=== PATIENT | female | born 1950 | race Caucasian/White ===

== ENCOUNTER 2019-05-29 21:39 | Emergency (ER) | payer OTHER, MEDICAID ==
[~2019-05-29] VITALS: Ht 154.9 cm; Wt 72.6 kg
[2019-05-29 21:45] VITALS: BP_SYST 150
--- NOTE | 2019-05-29 21:45 | NUR ---
Patient triaged and placed in waiting room. VSS and patient appears in no acute distress at this time. Accompanied by FAM MEMBER, awaiting available bed, and MD notified of need for MSE.
--- NOTE | 2019-05-29 23:09 | NUR ---
Patient to ER bed 7 to gown for evaluation. Side rails up. Report given to PENELOPE ARAGON.
--- NOTE | 2019-05-29 23:19 | NUR ---
Note undone in EDM - 05/29/19 at 2332 by STEF Pt BIB EMS with c/o right lower back pain. Pt A&Ox4. Pt states he took break at work around 9 pm and lower right back began to hurt. Pt states pain got progressively worse and called 911. Pt states pain is 10/10. Pt presents with unlabored breathing and clear bilateral lung sounds. Pt denies any urinary problems, nausea, vomiting, and fever. Pt states he has not eaten all day due to lack of appetite. Will continue to monitor.
--- NOTE | 2019-05-29 23:24 | NUR ---
Pt presents to ER with c/o headache, nose bleeding, and cough. Pt A&Ox4. Pt states head pain began around 7pm and described pain as "head was going to split open." Pt states pain 10/10. Pt states left side of nose started to bleed this morning and was intermittent all day. Pt states when she blew nose, "a lot of blood clots came out." Pt states nose bleed stopped at 10pm. Pt states dry cough presented 3 days ago. Pt lung sounds clear bilateral with no use of accessory muscles. Pt denies fever, nausea and vomiting. Will continue to monitor.
--- NOTE | 2019-05-29 23:29 | NUR ---
ER Dr. Vela at bedside examining patient.
--- NOTE | 2019-05-29 23:40 | NUR ---
ER Dr. Vela at bedside explaining results to patient.
[2019-05-29] MEDS ORDERED: OSELTAMIVIR PHOSPHATE 75 MG CAPSULE PO ONE (23:45)
[2019-05-29] MEDS ORDERED: ACETAMINOPHEN 500 MG TABLET PO ONE (23:45)
--- NOTE | 2019-05-29 23:58 | NUR ---
radiology at bedside.
[2019-05-30 00:05] LABS: BASOPHILS # (AUTO) 0.1 K/uL (0.0-0.2); BASOPHILS % (AUTO) 1.1 % (0.0-2.0); EOSINOPHILS # (AUTO) 0.1 K/uL (0.0-0.4); EOSINOPHILS % (AUTO) 1.1 % (0.0-4.0); HEMATOCRIT 35.7 % (36-48); HEMOGLOBIN 11.7 g/dL (12.0-16.0); LYMPHOCYTES # (AUTO) 1.4 K/uL (1.0-5.5); LYMPHOCYTES % (AUTO) 21.8 % (20.5-51.5); MEAN CORPUSCULAR HEMOGLOBIN 28 pg (27-31); MEAN CORPUSCULAR HGB CONC 33 % (32-36); MEAN CORPUSCULAR VOLUME 84 fL (79.0-98.0); MONOCYTES # (AUTO) 0.4 K/uL (0.0-1.0); MONOCYTES % (AUTO) 5.7 % (1.7-9.3); NEUTROPHILS # (AUTO) 4.6 K/uL (1.8-7.7); NEUTROPHILS % (AUTO) 70.3 % (40.0-70.0); PLATELET COUNT (AUTO) 193 K/uL (130-430); RED BLOOD CELL COUNT(AUTO) 4.25 MIL/uL (4.2-6.2); WHITE BLOOD COUNT (AUTO) 6.5 K/uL (4.8-10.8)
[2019-05-30 00:30] LABS: BILIRUBIN,URINE NEGATIVE (NEGATIVE); BLOOD, URINE NEGATIVE (NEGATIVE); CLARITY/URINE SL CLOUDY (CLEAR); COLOR,URINE YELLOW (YELLOW); GLUCOSE,URINE NEGATIVE (NEGATIVE); KETONES,URINE NEGATIVE (NEGATIVE); LEUKOCYTE ESTERASE ,URINE NEGATIVE (NEGATIVE); NITRITE, URINE NEGATIVE (NEGATIVE); PROTEIN URINE TRACE (NEGATIVE); UROBILINOGEN,URINE 0.2 (0.2-1.0)
[2019-05-30 00:34] LABS: BACTERIA,URINE MANY /HPF (None Seen); RBC,URINE 0-3 /HPF (0-3); WBC,URINE 0-3 /HPF (0-3)
[2019-05-30 00:40] VITALS: BP_SYST 146
--- NOTE | 2019-05-30 00:40 | NUR ---
Patient given written and verbal discharge instructions and verbalizes understanding. ER MD Vela discussed with patient the results and treatment provided. Patient in stable condition. ID arm band removed. Rx of tamiflu given. Patient educated on pain management and to follow up with PMD. Pain Scale 1/10. Opportunity for questions provided and answered. Medication side effect fact sheet provided.
== END 2019-05-30 00:40 | disposition home or self-care (01) ==
LOC: SED 21:39
DX: J10.1 Influenza due to other identified influenza virus with other respiratory manifestations (principal); E11.40 Type 2 diabetes mellitus with diabetic neuropathy, unspecified; I10 Essential (primary) hypertension; Z88.0 Allergy status to penicillin; Z88.6 Allergy status to analgesic agent; Z88.8 Allergy status to other drugs, medicaments and biological substances; Z90.49 Acquired absence of other specified parts of digestive tract
CPT/HCPCS: 36415; 71045; 81000; 85025; 86710; 87086; 99284; G9035

== ENCOUNTER 2019-06-28 00:50 | Emergency (ER) | payer OTHER, MEDICAID ==
[~2019-06-28] VITALS: Ht 154.9 cm; Wt 69.9 kg
[2019-06-28 01:12] VITALS: BP_SYST 147
[2019-06-28 01:40] LABS: BASOPHILS # (AUTO) 0.1 K/uL (0.0-0.2); BASOPHILS % (AUTO) 1.8 % (0.0-2.0); EOSINOPHILS # (AUTO) 0.2 K/uL (0.0-0.4); EOSINOPHILS % (AUTO) 2.8 % (0.0-4.0); HEMATOCRIT 34.5 % (36-48); HEMOGLOBIN 11.3 g/dL (12.0-16.0); LYMPHOCYTES # (AUTO) 3.3 K/uL (1.0-5.5); MEAN CORPUSCULAR HEMOGLOBIN 28 pg (27-31); MEAN CORPUSCULAR HGB CONC 33 % (32-36); MEAN CORPUSCULAR VOLUME 85 fL (79.0-98.0); MONOCYTES # (AUTO) 0.4 K/uL (0.0-1.0); NEUTROPHILS # (AUTO) 3.6 K/uL (1.8-7.7); NEUTROPHILS % (AUTO) 47.4 % (40.0-70.0); PLATELET COUNT (AUTO) 197 K/uL (130-430); RED BLOOD CELL COUNT(AUTO) 4.05 MIL/uL (4.2-6.2); RED CELL DISTRIBUTION WIDTH 14.7 % (9.0-15.0); WHITE BLOOD COUNT (AUTO) 7.6 K/uL (4.8-10.8)
[2019-06-28 01:55] LABS: CALCIUM 9.2 mg/dL (8.4-11.0); CREATININE 0.64 mg/dL (0.55-1.30); POTASSIUM 4.7 mmol/L (3.5-5.1)
[2019-06-28 02:00] LABS: ALBUMIN 3.7 g/dL (3.4-4.8); TOTAL BILIRUBIN 0.3 mg/dL (0.0-1.0)
[2019-06-28 04:57] LABS: BILIRUBIN,URINE NEGATIVE (NEGATIVE); BLOOD, URINE NEGATIVE (NEGATIVE); CLARITY/URINE CLEAR (CLEAR); COLOR,URINE YELLOW (YELLOW); GLUCOSE,URINE NEGATIVE (NEGATIVE); KETONES,URINE NEGATIVE (NEGATIVE); LEUKOCYTE ESTERASE ,URINE 2+ (NEGATIVE); NITRITE, URINE POSITIVE (NEGATIVE); PROTEIN URINE NEGATIVE (NEGATIVE); UROBILINOGEN,URINE 0.2 (0.2-1.0)
[2019-06-28 05:04] LABS: RBC,URINE 0-3 /HPF (0-3); WBC,URINE 20-50 /HPF (0-3)
[2019-06-28 05:05] LABS: BACTERIA,URINE MANY /HPF (None Seen)
[2019-06-28] MEDS ORDERED: SULFAMETHOXAZOLE/TRIMETHOPR DS 1 TABLET PO ONE (06:00)
[2019-06-28] MEDS ORDERED: PHENAZOPYRIDINE HCL 100 MG TABLET PO ONE (06:00)
[2019-06-28] MEDS ORDERED: ACETAMINOPHEN 500 MG TABLET PO ONE (06:15)
[2019-06-28 06:23] VITALS: BP_SYST 147
== END 2019-06-28 06:24 | disposition home or self-care (01) ==
LOC: SED 00:50
DX: N39.0 Urinary tract infection, site not specified (principal); E11.40 Type 2 diabetes mellitus with diabetic neuropathy, unspecified; I10 Essential (primary) hypertension; Z88.0 Allergy status to penicillin; Z88.6 Allergy status to analgesic agent; Z88.5 Allergy status to narcotic agent; Z88.8 Allergy status to other drugs, medicaments and biological substances
CPT/HCPCS: 36415; 80053; 81000-TC; 83690-TC; 85025; 87086; 87186-TC; 99284

== ENCOUNTER 2021-02-27 01:25 | Observation (INO) | payer OTHER, MEDICAID, SELFPAY ==
[~2021-02-27] VITALS: Ht 154.9 cm; Wt 68.5 kg
[2021-02-27 02:25] VITALS: BP_SYST 172
[2021-02-27] MEDS ORDERED: MORPHINE 2 MG/ML INJ. SYRINGE IVP ONE (06:00)
[2021-02-27] MEDS ORDERED: MORPHINE 2 MG/ML INJ. SYRINGE ONE (06:05)
[2021-02-27] MEDS ORDERED: NACL 0.9% 1,000 ML IV ONE (06:45)
[2021-02-27] MEDS ORDERED: hydrALAZINE HCL 20 MG/ML VIAL IVP ONE (07:15)
[2021-02-27 07:23] LABS: BASOPHILS # (AUTO) 0.1 K/uL (0.0-0.2); BASOPHILS % (AUTO) 0.6 % (0.0-2.0); EOSINOPHILS # (AUTO) 0.3 K/uL (0.0-0.4); EOSINOPHILS % (AUTO) 2.8 % (0.0-4.0); HEMOGLOBIN 12.3 g/dL (12.0-16.0); LYMPHOCYTES # (AUTO) 2.3 K/uL (1.0-5.5); MEAN CORPUSCULAR HEMOGLOBIN 28 pg (27-31); MEAN CORPUSCULAR HGB CONC 34 % (32-36); MEAN CORPUSCULAR VOLUME 83 fL (79.0-98.0); MONOCYTES # (AUTO) 0.4 K/uL (0.0-1.0); MONOCYTES % (AUTO) 4.3 % (1.7-9.3); NEUTROPHILS # (AUTO) 6.5 K/uL (1.8-7.7); NEUTROPHILS % (AUTO) 68.3 % (40.0-70.0); PLATELET COUNT (AUTO) 212 K/uL (130-430); RED BLOOD CELL COUNT(AUTO) 4.36 MIL/uL (4.2-6.2); RED CELL DISTRIBUTION WIDTH 13.3 % (9.0-15.0); WHITE BLOOD COUNT (AUTO) 9.6 K/uL (4.8-10.8)
[2021-02-27 07:23] LABS: BARBITURATE, URINE NEGATIVE (NEG <=200)
[2021-02-27 07:24] LABS: BENZODIAZEPINE, URINE POSITIVE (NEG <=150); CANNABINOID, URINE NEGATIVE (NEG <=50); COCAINE, URINE NEGATIVE (NEG <=150); METHAMPHETAMINES SCREEN,URINE NEGATIVE (NEG <=500); OPIATE, URINE POSITIVE (NEG <=100); PHENCYCLIDINE SCREEN,URINE NEGATIVE (NEG <=25); UR TRICYCLIC ANTIDEPRESSANTS NEGATIVE (NEG <=300); URINE AMPHETAMINE NEGATIVE (NEG <=500); URINE METHADONE NEGATIVE (NEG <=200); URINE OXYCODONE SCREEN NEGATIVE (NEG <=100); URINE PROPOXYPHENE SCREEN NEGATIVE (NEG <=300)
[2021-02-27 07:24] LABS: INR 1.1 (0.8-1.2)
[2021-02-27 07:28] LABS: ANION GAP 12 (5-15); CALCIUM 9.7 mg/dL (8.4-11.0); CHLORIDE 97 mmol/L (98-107); GLUCOSE 324 mg/dL (70-99); SODIUM SERUM 134 mmol/L (136-145); UREA NITROGEN, BLOOD 19 mg/dL (8-21)
[2021-02-27 07:42] LABS: ALANINE AMINOTRANSFERASE 45 U/L (12-78); ALBUMIN 4.4 g/dL (3.4-4.8); ASPARTATE AMINOTRANSFERASE 26 U/L (10-37); TOTAL BILIRUBIN 0.4 mg/dL (0.0-1.0)
[2021-02-27 07:45] LABS: ACETAMINOPHEN < 1 ug/mL (1-30)
[2021-02-27 07:46] LABS: ALCOHOL, BLOOD < 3 mg/dL (<10)
[2021-02-27] MEDS ORDERED: GLIP5TAB26 PO (08:18)
[2021-02-27] MEDS ORDERED: PRO10 PO (08:18)
[2021-02-27] MEDS ORDERED: LISI10TA29 PO (08:18)
[2021-02-27] MEDS ORDERED: CYCL10TA24 PO (08:18)
[2021-02-27] MEDS ORDERED: HYDR25TA4 PO (08:18)
[2021-02-27 08:48] LABS: CLARITY/URINE CLOUDY (CLEAR); COLOR,URINE YELLOW (YELLOW); PH,URINE 6.5 (5.0-8.0)
[2021-02-27 08:49] LABS: GLUCOSE,URINE 2+ (NEGATIVE); KETONES,URINE NEGATIVE (NEGATIVE); PROTEIN URINE TRACE (NEGATIVE)
[2021-02-27 08:50] LABS: BILIRUBIN,URINE NEGATIVE (NEGATIVE); BLOOD, URINE TRACE (NEGATIVE); LEUKOCYTE ESTERASE ,URINE 3+ (NEGATIVE); NITRITE, URINE NEGATIVE (NEGATIVE); UROBILINOGEN,URINE 0.2 (0.2-1.0)
[2021-02-27 08:52] LABS: URINE SULFO SALICYLIC ACID NEGATIVE (NEGATIVE)
[2021-02-27 08:53] LABS: BACTERIA,URINE MODERATE /HPF (None Seen); WBC,URINE >100 /HPF (0-3)
[2021-02-27 10:07] VITALS: BP_SYST 129
[2021-02-27] MEDS ORDERED: ONDANSETRON HCL 4 MG/2 ML VIAL IVP PRN (13:15)
[2021-02-27] MEDS ORDERED: MORPHINE SULFATE 15 MG TABLET.ER ONE (13:27)
[2021-02-27] MEDS: MORPHINE SULFATE 15 MG TABLET.ER PO SCH ×2 (14:00→20:59)
[2021-02-27] MEDS: LEVOFLOXACIN IN DEXTROSE 5 % 100 ML IV SCH (14:35)
[2021-02-27] MEDS: NORMAL SALINE 5 ML DISP.SYRIN IVF SCH ×4 (14:36→21:10)
[2021-02-27 16:00] VITALS: BP_SYST 135
[2021-02-27] MEDS: INSULIN REGULAR, HUMAN 100 UNITS/ML, 10 ML VIAL (humuLIN R) SUBCUT PRN ×2 (18:20→21:08)
[2021-02-27 20:00] VITALS: BP_SYST 143
[2021-02-27] MEDS: CYCLOBENZAPRINE HCL 10 MG TABLET (FLEXERIL) PO SCH (20:58)
[2021-02-27] MEDS ORDERED: MORPHINE SULFATE 30 MG TABLET.SA PO SCH ×2 (21:00)
[2021-02-28 01:30] VITALS: BP_SYST 167
[2021-02-28] MEDS: NORMAL SALINE 5 ML DISP.SYRIN IVF SCH (06:21)
[2021-02-28] MEDS: INSULIN REGULAR, HUMAN 100 UNITS/ML, 10 ML VIAL (humuLIN R) SUBCUT PRN ×2 (06:25→12:46)
[2021-02-28] MEDS: MORPHINE SULFATE 15 MG TABLET.ER PO SCH ×2 (06:27→14:43)
[2021-02-28] MEDS: CYCLOBENZAPRINE HCL 10 MG TABLET (FLEXERIL) PO SCH (07:45)
[2021-02-28 08:00] VITALS: BP_SYST 133
[2021-02-28 08:27] LABS: BASOPHILS % (AUTO) 0.5 % (0.0-2.0); EOSINOPHILS # (AUTO) 0.2 K/uL (0.0-0.4); EOSINOPHILS % (AUTO) 2.3 % (0.0-4.0); HEMATOCRIT 37.6 % (36-48); HEMOGLOBIN 12.2 g/dL (12.0-16.0); LYMPHOCYTES # (AUTO) 2.4 K/uL (1.0-5.5); LYMPHOCYTES % (AUTO) 27.5 % (20.5-51.5); MEAN CORPUSCULAR HEMOGLOBIN 27 pg (27-31); MEAN CORPUSCULAR HGB CONC 33 % (32-36); MEAN CORPUSCULAR VOLUME 84 fL (79.0-98.0); MONOCYTES # (AUTO) 0.3 K/uL (0.0-1.0); NEUTROPHILS # (AUTO) 5.8 K/uL (1.8-7.7); NEUTROPHILS % (AUTO) 65.7 % (40.0-70.0); PLATELET COUNT (AUTO) 222 K/uL (130-430); RED BLOOD CELL COUNT(AUTO) 4.46 MIL/uL (4.2-6.2); RED CELL DISTRIBUTION WIDTH 13.8 % (9.0-15.0); WHITE BLOOD COUNT (AUTO) 8.9 K/uL (4.8-10.8)
[2021-02-28] MEDS ORDERED: HYDROCHLOROTHIAZIDE 25 MG TABLET (HCTZ) PO SCH (09:00)
[2021-02-28] MEDS ORDERED: FLUoxetine HCL 10 MG CAPSULE (PROzac) PO SCH (09:00)
[2021-02-28] MEDS ORDERED: LISINOPRIL 10 MG TABLET (PRINIVIL) PO SCH (09:00)
[2021-02-28] MEDS ORDERED: glipiZIDE XL 5 MG TAB ( GLUCOTROL XL) PO SCH (09:00)
[2021-02-28 09:19] LABS: ANION GAP 13 (5-15); CALCIUM 9.5 mg/dL (8.4-11.0); CHLORIDE 100 mmol/L (98-107); CREATININE 0.71 mg/dL (0.55-1.30); GLUCOSE 341 mg/dL (70-99); POTASSIUM 4.2 mmol/L (3.5-5.1); SODIUM SERUM 135 mmol/L (136-145); UREA NITROGEN, BLOOD 23 mg/dL (8-21)
[2021-02-28] MEDS ORDERED: LEVO500T89 PO (11:40)
[2021-02-28] MEDS: LEVOFLOXACIN IN DEXTROSE 5 % 100 ML IV SCH (12:43)
[2021-02-28 13:36] VITALS: BP_SYST 131
== END 2021-02-28 15:15 | disposition home or self-care (01) ==
LOC: SED 01:25 → SMU 07:56
PROVIDERS: ADMIT Preventive Medicine Preventive Medicine/Occupational Environmental Medicine; ATTEND Internal Medicine Hospice and Palliative Medicine
DX: F11.23 Opioid dependence with withdrawal (principal); Z20.822 Contact with and (suspected) exposure to COVID-19; E87.1 Hypo-osmolality and hyponatremia; E11.65 Type 2 diabetes mellitus with hyperglycemia; E11.40 Type 2 diabetes mellitus with diabetic neuropathy, unspecified; G60.8 Other hereditary and idiopathic neuropathies; I10 Essential (primary) hypertension; G89.4 Chronic pain syndrome; M79.7 Fibromyalgia; Z88.0 Allergy status to penicillin; Z79.899 Other long term (current) drug therapy
CPT/HCPCS: 36415 ×2; 70450; 71045; 76376; 80048; 80053; 80307; 81000; 82140; 82962 ×2; 83605; 83735; 84100; 84443; 84484; 85025 ×2; 85610; 85730; 87040; 87086; 87426; 96361; 96372 ×2; 96374; 99285; G0378 ×2; G0480; G0481; G0482; J0360; J1956; J2270; 87186-TC; 93005

== ENCOUNTER 2021-03-02 15:33 | Emergency (ER) | payer OTHER, MEDICAID ==
[~2021-03-02] VITALS: Ht 154.9 cm; Wt 71.7 kg
[~2021-03-02 15:33] MED LIST: CYCL10TA24 PO; GLIP5TAB26 PO; HYDR25TA4 PO; LEVO500T89 PO; LISI10TA29 PO; PRO10 PO
[2021-03-02 15:59] VITALS: BP_SYST 153
[2021-03-02 17:18] LABS: BASOPHILS # (AUTO) 0.1 K/uL (0.0-0.2); BASOPHILS % (AUTO) 0.7 % (0.0-2.0); EOSINOPHILS # (AUTO) 0.2 K/uL (0.0-0.4); EOSINOPHILS % (AUTO) 1.7 % (0.0-4.0); HEMATOCRIT 33.7 % (36-48); HEMOGLOBIN 11.5 g/dL (12.0-16.0); LYMPHOCYTES # (AUTO) 2.2 K/uL (1.0-5.5); LYMPHOCYTES % (AUTO) 22.4 % (20.5-51.5); MEAN CORPUSCULAR HEMOGLOBIN 28 pg (27-31); MEAN CORPUSCULAR HGB CONC 34 % (32-36); MEAN CORPUSCULAR VOLUME 82 fL (79.0-98.0); MONOCYTES # (AUTO) 0.3 K/uL (0.0-1.0); MONOCYTES % (AUTO) 3.5 % (1.7-9.3); NEUTROPHILS # (AUTO) 6.9 K/uL (1.8-7.7); NEUTROPHILS % (AUTO) 71.7 % (40.0-70.0); PLATELET COUNT (AUTO) 209 K/uL (130-430); RED BLOOD CELL COUNT(AUTO) 4.09 MIL/uL (4.2-6.2); RED CELL DISTRIBUTION WIDTH 13.6 % (9.0-15.0); WHITE BLOOD COUNT (AUTO) 9.6 K/uL (4.8-10.8)
[2021-03-02 17:37] LABS: ANION GAP 9 (5-15); CALCIUM 9.4 mg/dL (8.4-11.0); CHLORIDE 98 mmol/L (98-107); CREATININE 0.63 mg/dL (0.55-1.30); GLUCOSE 243 mg/dL (70-99); POTASSIUM 4.1 mmol/L (3.5-5.1); SODIUM SERUM 134 mmol/L (136-145); UREA NITROGEN, BLOOD 23 mg/dL (8-21)
[2021-03-02 17:42] LABS: ALANINE AMINOTRANSFERASE 53 U/L (12-78); ASPARTATE AMINOTRANSFERASE 40 U/L (10-37); TOTAL BILIRUBIN 0.3 mg/dL (0.0-1.0)
[2021-03-02 18:13] VITALS: BP_SYST 118
[2021-03-02 18:16] LABS: CKMB RELATIVE INDEX 0.9 (0.0-2.9); CREATINE KINASE MB 1.9 ng/mL (0-3.6)
== END 2021-03-02 18:13 | disposition home or self-care (01) ==
LOC: SED 15:33
DX: S09.90XA Unspecified injury of head, initial encounter (principal); R42 Dizziness and giddiness; I10 Essential (primary) hypertension; E11.9 Type 2 diabetes mellitus without complications; Z88.0 Allergy status to penicillin; Z88.5 Allergy status to narcotic agent; Z88.8 Allergy status to other drugs, medicaments and biological substances; Z79.899 Other long term (current) drug therapy; W18.39XA Other fall on same level, initial encounter; Y93.89 Activity, other specified; Y92.89 Other specified places as the place of occurrence of the external cause; Y99.8 Other external cause status
CPT/HCPCS: 36415; 70450-TC; 76376; 80053; 81002; 82550; 82553; 82962; 84484; 85025; 93005; 99285

== ENCOUNTER 2021-05-11 13:36 | Emergency (ER) | payer OTHER, MEDICAID, SELFPAY ==
[~2021-05-11] VITALS: Ht 154.9 cm; Wt 70.8 kg
[~2021-05-11 13:36] MED LIST changes: -LEVO500T89 PO; +LEVO500T90 PO
[2021-05-11 13:40] VITALS: BP_SYST 182
--- NOTE | 2021-05-11 13:44 | NUR ---
Placed in room 8 . Placed on icer hand, blood pressure machine and pulse oximeter. To gown for exam. Side rails up.
--- NOTE | 2021-05-11 13:45 | NUR ---
PT BIBA FROM HOME, STATES SHE WAS EATING A PIECE OF STEAK WHEN SHE FELT LIKE SHE WAS CHOKING. STATES SHE WAS SHORTLY ABLE TO SWALLOW BUT FEELS PRESSURE AND IRRITATION IN THROAT. PT ARRIVES 02 96%, SPEAKING IN FULL SENTENCES, V/S STABLE, AAOX4
--- NOTE | 2021-05-11 13:52 | NUR ---
ER DR. COWAN AT THE BEDSIDE EXAMINING PT
[2021-05-11 14:14] VITALS: BP_SYST 182
--- NOTE | 2021-05-11 14:14 | NUR ---
Patient given written and verbal discharge instructions and verbalizes understanding. ER MD discussed with patient the results and treatment provided. Patient in stable condition. ID arm band removed. NO Rx given. Patient educated on pain management and to follow up with PMD. Pain Scale 0/10. Opportunity for questions provided and answered. Medication side effect fact sheet provided.
== END 2021-05-11 14:14 | disposition home or self-care (01) ==
LOC: SED 13:36
DX: T18.128A Food in esophagus causing other injury, initial encounter (principal); I10 Essential (primary) hypertension; E11.9 Type 2 diabetes mellitus without complications; Z88.1 Allergy status to other antibiotic agents; Z88.5 Allergy status to narcotic agent; Z88.8 Allergy status to other drugs, medicaments and biological substances; X58.XXXA Exposure to other specified factors, initial encounter; Y93.89 Activity, other specified; Y92.89 Other specified places as the place of occurrence of the external cause; Y99.8 Other external cause status
CPT/HCPCS: 99283

== ENCOUNTER 2021-12-22 12:17 | Inpatient (IN) | payer OTHER, MEDICAID ==
[~2021-12-22] VITALS: Ht 154.9 cm; Wt 74.4 kg
[~2021-12-22 12:17] MED LIST changes: +LEVO-62 PO; -LEVO500T90 PO
[2021-12-22 12:25] VITALS: BP_SYST 152
[2021-12-22 13:45] LABS: BASOPHILS # (AUTO) 0.1 K/uL (0.0-0.2); BASOPHILS % (AUTO) 0.7 % (0.0-2.0); EOSINOPHILS # (AUTO) 0.2 K/uL (0.0-0.4); EOSINOPHILS % (AUTO) 1.9 % (0.0-4.0); HEMATOCRIT 33.7 % (36-48); HEMOGLOBIN 11.2 g/dL (12.0-16.0); LYMPHOCYTES # (AUTO) 1.7 K/uL (1.0-5.5); LYMPHOCYTES % (AUTO) 17.8 % (20.5-51.5); MEAN CORPUSCULAR HEMOGLOBIN 27 pg (27-31); MEAN CORPUSCULAR HGB CONC 33 % (32-36); MEAN CORPUSCULAR VOLUME 83 fL (79.0-98.0); MONOCYTES # (AUTO) 0.4 K/uL (0.0-1.0); MONOCYTES % (AUTO) 4.6 % (1.7-9.3); NEUTROPHILS # (AUTO) 7.1 K/uL (1.8-7.7); PLATELET COUNT (AUTO) 197 K/uL (130-430); RED BLOOD CELL COUNT(AUTO) 4.08 MIL/uL (4.2-6.2); RED CELL DISTRIBUTION WIDTH 13.7 % (9.0-15.0); WHITE BLOOD COUNT (AUTO) 9.5 K/uL (4.8-10.8)
[2021-12-22 14:00] LABS: ANION GAP 7 (5-15); CALCIUM 8.4 mg/dL (8.4-11.0); CHLORIDE 99 mmol/L (98-107); CREATININE 0.59 mg/dL (0.55-1.30); GLUCOSE 231 mg/dL (70-99); POTASSIUM 3.9 mmol/L (3.5-5.1); SODIUM SERUM 136 mmol/L (136-145); UREA NITROGEN, BLOOD 13 mg/dL (8-21)
[2021-12-22 14:06] LABS: ALANINE AMINOTRANSFERASE 63 U/L (12-78); ALBUMIN 3.1 g/dL (3.4-4.8); ASPARTATE AMINOTRANSFERASE 70 U/L (10-37); TOTAL BILIRUBIN 0.2 mg/dL (0.0-1.0)
[2021-12-22] MEDS ORDERED: ONDANSETRON HCL 4 MG/2 ML VIAL IVP ONE (14:45)
[2021-12-22] MEDS ORDERED: MORPHINE 4 MG INJ. 4 MG/ML VIAL IVP ONE (14:45)
[2021-12-22] MEDS ORDERED: NACL 0.9% 1,000 ML IV ONE (14:45)
[2021-12-22 17:08] LABS: BILIRUBIN,URINE NEGATIVE (NEGATIVE); BLOOD, URINE NEGATIVE (NEGATIVE); CLARITY/URINE CLEAR (CLEAR); COLOR,URINE YELLOW (YELLOW); GLUCOSE,URINE TRACE (NEGATIVE); KETONES,URINE NEGATIVE (NEGATIVE); LEUKOCYTE ESTERASE ,URINE NEGATIVE (NEGATIVE); NITRITE, URINE NEGATIVE (NEGATIVE); PROTEIN URINE NEGATIVE (NEGATIVE); UROBILINOGEN,URINE 0.2 (0.2-1.0)
[2021-12-22] MEDS ORDERED: metroNIDAZOLE 500 mg/NS 100 ML IV ONE (18:00)
[2021-12-22] MEDS: 0.45% NACL 1,000 ML IV SCH (19:15)
[2021-12-22] MEDS: D5/0.45 NS 1,000 ML IV SCH (20:18)
[2021-12-22 21:16] VITALS: BP_SYST 111
[2021-12-22 21:30] VITALS: BP_SYST 135
[2021-12-22] MEDS: CIPROFLOXACIN LACT 400 MG/D5W 200 ML IV SCH (21:32)
[2021-12-22] MEDS: VANCOMYCIN HCL ORAL SOLUTION 125 MG/5 ML, 150 ML PO SCH (21:32)
[2021-12-23] MEDS: TEMAZEPAM 7.5 MG CAPSULE PO PRN ×2 (00:08→20:34)
[2021-12-23 00:43] VITALS: BP_SYST 130
[2021-12-23 02:00] VITALS: BP_SYST 157
[2021-12-23] MEDS ORDERED: metroNIDAZOLE 500 mg/NS 100 ML IV SCH ×2 (02:00→06:00)
[2021-12-23] MEDS: MORPHINE 4 MG INJ. 4 MG/ML VIAL IVP PRN ×3 (02:02→12:53)
[2021-12-23] MEDS: metroNIDAZOLE 500 mg/NS 100 ML IV SCH ×3 (06:25→21:17)
[2021-12-23] MEDS: CIPROFLOXACIN LACT 400 MG/D5W 200 ML IV SCH ×2 (08:24→20:21)
[2021-12-23] MEDS ORDERED: MORPHINE SULFATE 30 MG TABLET.SA PO ONE (10:45)
[2021-12-23] MEDS ORDERED: MORPHINE SULFATE 15 MG TABLET.ER PO ONE (10:45)
[2021-12-23] MEDS: VANCOMYCIN HCL ORAL SOLUTION 125 MG/5 ML, 150 ML PO SCH ×4 (11:31→20:20)
[2021-12-23] MEDS: 0.45% NACL 1,000 ML IV SCH (11:55)
[2021-12-23] MEDS: ONDANSETRON HCL 4 MG/2 ML VIAL IVP PRN (13:26)
[2021-12-23] MEDS: D5/0.45 NS 1,000 ML IV SCH ×2 (15:29→20:23)
[2021-12-23 16:44] VITALS: BP_SYST 151
[2021-12-23 19:00] VITALS: BP_SYST 155
[2021-12-23] MEDS: MORPHINE SULFATE 30 MG TABLET.SA PO SCH (20:19)
[2021-12-23] MEDS: MORPHINE SULFATE 15 MG TABLET.ER PO SCH (20:20)
[2021-12-24] VITALS: BP_SYST 155
[2021-12-24] MEDS: MORPHINE 4 MG INJ. 4 MG/ML VIAL IVP PRN ×2 (02:21→16:52)
[2021-12-24] MEDS: metroNIDAZOLE 500 mg/NS 100 ML IV SCH ×3 (05:24→21:49)
[2021-12-24 08:00] VITALS: BP_SYST 145
[2021-12-24] MEDS: MORPHINE SULFATE 30 MG TABLET.SA PO SCH ×2 (08:51→21:48)
[2021-12-24] MEDS: VANCOMYCIN HCL ORAL SOLUTION 125 MG/5 ML, 150 ML PO SCH ×4 (08:51→21:48)
[2021-12-24] MEDS: MORPHINE SULFATE 15 MG TABLET.ER PO SCH ×2 (08:51→21:48)
[2021-12-24] MEDS: CIPROFLOXACIN LACT 400 MG/D5W 200 ML IV SCH ×2 (08:54→21:49)
[2021-12-24] MEDS: 0.45% NACL 1,000 ML IV SCH ×2 (14:43→16:46)
[2021-12-24 15:40] VITALS: BP_SYST 150
[2021-12-24] MEDS: INSULIN REGULAR, HUMAN 100 UNITS/ML, 10 ML VIAL (humuLIN R) SUBCUT PRN ×2 (16:56→22:14)
[2021-12-24 20:00] VITALS: BP_SYST 139
[2021-12-24] MEDS ORDERED: LOPERAMIDE HCL 2 MG CAPSULE PO PRN ×2 (23:00)
[2021-12-25 00:04] VITALS: BP_SYST 151
[2021-12-25] MEDS: AMITRIPTYLINE HCL 10 MG TABLET (ELAVIL) PO PRN (00:04)
[2021-12-25] MEDS: MORPHINE 4 MG INJ. 4 MG/ML VIAL IVP PRN ×3 (02:07→12:31)
[2021-12-25] MEDS: metroNIDAZOLE 500 mg/NS 100 ML IV SCH ×3 (05:10→21:28)
[2021-12-25] MEDS: INSULIN REGULAR, HUMAN 100 UNITS/ML, 10 ML VIAL (humuLIN R) SUBCUT PRN ×4 (06:09→21:36)
[2021-12-25 08:00] VITALS: BP_SYST 139
[2021-12-25] MEDS: MORPHINE SULFATE 30 MG TABLET.SA PO SCH ×2 (09:08→21:27)
[2021-12-25] MEDS: VANCOMYCIN HCL ORAL SOLUTION 125 MG/5 ML, 150 ML PO SCH ×4 (09:08→21:28)
[2021-12-25] MEDS: MORPHINE SULFATE 15 MG TABLET.ER PO SCH ×2 (09:08→21:27)
[2021-12-25] MEDS: CIPROFLOXACIN LACT 400 MG/D5W 200 ML IV SCH ×2 (09:09→21:27)
[2021-12-25 12:00] VITALS: BP_SYST 132
[2021-12-25] MEDS: 0.45% NACL 1,000 ML IV SCH (12:31)
[2021-12-25] MEDS: ONDANSETRON HCL 4 MG/2 ML VIAL IVP PRN (12:36)
[2021-12-25 17:00] VITALS: BP_SYST 140
[2021-12-25 20:03] VITALS: BP_SYST 139
[2021-12-26 00:01] VITALS: BP_SYST 145
[2021-12-26] MEDS: metroNIDAZOLE 500 mg/NS 100 ML IV SCH ×3 (06:27→21:21)
[2021-12-26] MEDS: INSULIN REGULAR, HUMAN 100 UNITS/ML, 10 ML VIAL (humuLIN R) SUBCUT PRN ×4 (06:31→20:39)
[2021-12-26] MEDS: MORPHINE 4 MG INJ. 4 MG/ML VIAL IVP PRN ×3 (06:47→22:02)
[2021-12-26 08:00] VITALS: BP_SYST 148
[2021-12-26] MEDS: VANCOMYCIN HCL ORAL SOLUTION 125 MG/5 ML, 150 ML PO SCH ×4 (09:12→20:26)
[2021-12-26] MEDS: MORPHINE SULFATE 15 MG TABLET.ER PO SCH ×2 (09:12→20:26)
[2021-12-26] MEDS: MORPHINE SULFATE 30 MG TABLET.SA PO SCH ×2 (09:12→20:27)
[2021-12-26] MEDS: CIPROFLOXACIN LACT 400 MG/D5W 200 ML IV SCH ×2 (09:13→20:26)
[2021-12-26] MEDS: 0.45% NACL 1,000 ML IV SCH (09:13)
[2021-12-26] MEDS: INSULIN GLARGINE 100 UNITS/ML 10 ML VIAL SUBCUT SCH (11:30)
[2021-12-26] MEDS ORDERED: INSULIN GLARGINE 100 UNITS/ML 10 ML VIAL SUBCUT ONE (11:45)
[2021-12-26 12:00] VITALS: BP_SYST 136
[2021-12-26 16:00] VITALS: BP_SYST 142
[2021-12-26 19:00] VITALS: BP_SYST 144
[2021-12-26 20:00] VITALS: BP_SYST 144
[2021-12-26] MEDS: AMITRIPTYLINE HCL 10 MG TABLET (ELAVIL) PO PRN (22:03)
[2021-12-27 00:50] VITALS: BP_SYST 147
[2021-12-27] MEDS: metroNIDAZOLE 500 mg/NS 100 ML IV SCH (05:21)
[2021-12-27] MEDS: 0.45% NACL 1,000 ML IV SCH (05:21)
[2021-12-27] MEDS: MORPHINE 4 MG INJ. 4 MG/ML VIAL IVP PRN (06:00)
[2021-12-27] MEDS: INSULIN REGULAR, HUMAN 100 UNITS/ML, 10 ML VIAL (humuLIN R) SUBCUT PRN (06:07)
[2021-12-27 07:00] VITALS: BP_SYST 132
[2021-12-27] MEDS: MORPHINE SULFATE 30 MG TABLET.SA PO SCH (09:00)
[2021-12-27] MEDS: VANCOMYCIN HCL ORAL SOLUTION 125 MG/5 ML, 150 ML PO SCH ×2 (09:00→11:30)
[2021-12-27] MEDS: INSULIN GLARGINE 100 UNITS/ML 10 ML VIAL SUBCUT SCH (09:00)
[2021-12-27] MEDS: MORPHINE SULFATE 15 MG TABLET.ER PO SCH (09:00)
[2021-12-27] MEDS ORDERED: VANC25SO PO (16:12)
[2021-12-27 16:16] VITALS: BP_SYST 140
== END 2021-12-27 16:41 | disposition home or self-care (01) | DRG 372 ==
LOC: SED 12:17 → SMU 18:25
PROVIDERS: ADMIT Internal Medicine; ATTEND Internal Medicine
DX: A04.72 Enterocolitis due to Clostridium difficile, not specified as recurrent (principal); E44.0 Moderate protein-calorie malnutrition; K57.92 Diverticulitis of intestine, part unspecified, without perforation or abscess without bleeding; N39.0 Urinary tract infection, site not specified; E11.40 Type 2 diabetes mellitus with diabetic neuropathy, unspecified; F32.A Depression, unspecified; Z20.822 Contact with and (suspected) exposure to COVID-19; I10 Essential (primary) hypertension; Z87.440 Personal history of urinary (tract) infections; Z88.5 Allergy status to narcotic agent; Z88.0 Allergy status to penicillin; Z88.8 Allergy status to other drugs, medicaments and biological substances; Z79.899 Other long term (current) drug therapy; E11.65 Type 2 diabetes mellitus with hyperglycemia
CPT/HCPCS: 36415; 76376; 80053; 81003; 82962; 83605; 85025; 87040; 87230-TC; 96361; 96374; 96375; 99285; J0744; J1815; J2270; J2274; J2405; J3490

== ENCOUNTER 2022-01-10 04:58 | Inpatient (IN) | payer OTHER, MEDICAID ==
[~2022-01-10] VITALS: Ht 154.9 cm; Wt 77.1 kg
[~2022-01-10 04:58] MED LIST changes: -LEVO-62 PO; +VANC25SO PO
[2022-01-10 05:03] VITALS: BP_SYST 176
[2022-01-10] MEDS ORDERED: MORPHINE 4 MG INJ. 4 MG/ML VIAL IM ONE (05:30)
[2022-01-10] MEDS ORDERED: KETOROLAC TROMETHAMINE 30 MG VIAL IM ONE (05:30)
[2022-01-10] MEDS ORDERED: MORPHINE 4 MG INJ. 4 MG/ML VIAL IVP ONE (06:30)
[2022-01-10] MEDS ORDERED: ONDANSETRON HCL 4 MG/2 ML VIAL IVP ONE (06:30)
[2022-01-10 08:26] LABS: BASOPHILS # (AUTO) 0.1 K/uL (0.0-0.2); BASOPHILS % (AUTO) 0.9 % (0.0-2.0); EOSINOPHILS # (AUTO) 0.1 K/uL (0.0-0.4); EOSINOPHILS % (AUTO) 1.1 % (0.0-4.0); HEMATOCRIT 32.7 % (36-48); LYMPHOCYTES # (AUTO) 1.8 K/uL (1.0-5.5); MEAN CORPUSCULAR VOLUME 83 fL (79.0-98.0); MONOCYTES # (AUTO) 0.4 K/uL (0.0-1.0); MONOCYTES % (AUTO) 5.1 % (1.7-9.3); NEUTROPHILS # (AUTO) 5.1 K/uL (1.8-7.7); NEUTROPHILS % (AUTO) 68.9 % (40.0-70.0); PLATELET COUNT (AUTO) 188 K/uL (130-430); RED BLOOD CELL COUNT(AUTO) 3.93 MIL/uL (4.2-6.2); RED CELL DISTRIBUTION WIDTH 13.4 % (9.0-15.0); WHITE BLOOD COUNT (AUTO) 7.3 K/uL (4.8-10.8)
[2022-01-10] MEDS ORDERED: NACL 0.9% 1,000 ML IV ONE (08:45)
[2022-01-10] MEDS: D5/0.45 NS 1,000 ML IV SCH ×3 (08:46→21:43)
[2022-01-10 08:57] LABS: ANION GAP 10 (5-15); CALCIUM 8.4 mg/dL (8.4-11.0); CHLORIDE 97 mmol/L (98-107); CREATININE 0.69 mg/dL (0.55-1.30); GLUCOSE 319 mg/dL (70-99); UREA NITROGEN, BLOOD 10 mg/dL (8-21)
[2022-01-10 09:19] LABS: ALANINE AMINOTRANSFERASE 51 U/L (12-78); ALBUMIN 3.1 g/dL (3.4-4.8); ASPARTATE AMINOTRANSFERASE 35 U/L (10-37); TOTAL BILIRUBIN 0.4 mg/dL (0.0-1.0)
[2022-01-10 11:40] VITALS: BP_SYST 151
[2022-01-10] MEDS ORDERED: NALOXONE HCL 0.4 MG/ML AMP (NARCAN) IVP PRN (15:45)
[2022-01-10] MEDS: MORPHINE 2 MG/ML INJ. SYRINGE IVP PRN ×2 (16:27→21:51)
[2022-01-10] MEDS ORDERED: TRIAMCINOLONE ACETONIDE 40 MG/ML IM ONE (18:00)
[2022-01-10] MEDS ORDERED: LIDOCAINE/EPI 1% 1:100000 20 ML VIAL INJ ONE (18:00)
[2022-01-10 20:00] VITALS: BP_SYST 148
[2022-01-10] MEDS ORDERED: HYDR-4039 PO (23:20)
[2022-01-10] MEDS ORDERED: CHOL400T58 (23:20)
[2022-01-10] MEDS ORDERED: INSU500I SQ (23:20)
[2022-01-10] MEDS ORDERED: PRO20 PO (23:20)
[2022-01-10] MEDS ORDERED: SYN50 PO (23:20)
[2022-01-10] MEDS ORDERED: OMEP20TA20 PO (23:20)
[2022-01-10] MEDS ORDERED: NEU300 PO (23:20)
[2022-01-10] MEDS ORDERED: FOSI20TA98 PO (23:20)
[2022-01-11] VITALS: BP_SYST 153
[2022-01-11] MEDS ORDERED: ACETAMINOPHEN 325 MG TABLET PO PRN (08:45)
[2022-01-11] MEDS ORDERED: PANTOPRAZOLE SODIUM 40 MG TAB PO ONE (09:00)
[2022-01-11] MEDS: INSULIN REGULAR, HUMAN 100 UNITS/ML, 3 ML VIAL (humuLIN R) SUBCUT PRN ×3 (09:14→16:17)
[2022-01-11] MEDS ORDERED: D5W 1,000 ML IV PRN (09:15)
[2022-01-11] MEDS ORDERED: lisinopriL 20 MG TABLET PO ONE (09:15)
[2022-01-11] MEDS ORDERED: DEXTROSE 50%-WATER 50 ML DISP.SYRIN IVP PRN (09:15)
[2022-01-11] MEDS ORDERED: hydrALAZINE HCL 25 MG TABLET PO ONE (09:15)
[2022-01-11] MEDS ORDERED: LEVOTHYROXINE SODIUM 0.05 MG TABLET PO ONE (09:15)
[2022-01-11] MEDS ORDERED: GLUCOSE (DEXTROSE) ORAL GEL -Adults PO PRN (09:15)
[2022-01-11] MEDS: MORPHINE 2 MG/ML INJ. SYRINGE IVP PRN ×2 (10:27→14:36)
[2022-01-11] MEDS: D5/0.45 NS 1,000 ML IV SCH (11:52)
[2022-01-11 12:00] VITALS: BP_SYST 150
[2022-01-11 16:11] VITALS: BP_SYST 151
[2022-01-11 20:00] VITALS: BP_SYST 129
[2022-01-12] VITALS: BP_SYST 122
[2022-01-12] MEDS: D5/0.45 NS 1,000 ML IV SCH ×2 (00:15→14:17)
[2022-01-12] MEDS: INSULIN REGULAR, HUMAN 100 UNITS/ML, 3 ML VIAL (humuLIN R) SUBCUT PRN ×4 (00:21→17:47)
[2022-01-12] MEDS: hydrALAZINE HCL 25 MG TABLET PO SCH ×3 (00:27→22:50)
[2022-01-12] MEDS: MORPHINE 2 MG/ML INJ. SYRINGE IVP PRN ×3 (01:17→22:50)
[2022-01-12] MEDS: LEVOTHYROXINE SODIUM 0.05 MG TABLET PO SCH (07:14)
[2022-01-12 07:56] VITALS: BP_SYST 134
[2022-01-12] MEDS: lisinopriL 20 MG TABLET PO SCH (08:56)
[2022-01-12] MEDS: PANTOPRAZOLE SODIUM 40 MG TAB PO SCH (08:56)
[2022-01-12] MEDS: INSULIN REGULAR, HUMAN 100 UNITS/ML, 3 ML VIAL SUBCUT SCH ×2 (12:23→17:49)
[2022-01-12 13:20] VITALS: BP_SYST 140
[2022-01-12 16:04] VITALS: BP_SYST 136
[2022-01-12 20:00] VITALS: BP_SYST 124
[2022-01-12] MEDS ORDERED: LOPERAMIDE HCL 2 MG CAPSULE PO PRN (20:30)
[2022-01-13] VITALS: BP_SYST 133
[2022-01-13] MEDS: INSULIN REGULAR, HUMAN 100 UNITS/ML, 3 ML VIAL (humuLIN R) SUBCUT PRN ×4 (00:28→16:56)
[2022-01-13] MEDS: D5/0.45 NS 1,000 ML IV SCH ×2 (02:55→16:15)
[2022-01-13] MEDS: LEVOTHYROXINE SODIUM 0.05 MG TABLET PO SCH (07:02)
[2022-01-13] MEDS: MORPHINE 2 MG/ML INJ. SYRINGE IVP PRN ×3 (07:13→15:51)
[2022-01-13] MEDS: INSULIN REGULAR, HUMAN 100 UNITS/ML, 3 ML VIAL SUBCUT SCH ×3 (07:20→16:55)
[2022-01-13 08:00] VITALS: BP_SYST 143
[2022-01-13] MEDS: PANTOPRAZOLE SODIUM 40 MG TAB PO SCH (09:19)
[2022-01-13] MEDS: lisinopriL 20 MG TABLET PO SCH (09:21)
[2022-01-13] MEDS: hydrALAZINE HCL 25 MG TABLET PO SCH (09:22)
[2022-01-13 13:39] VITALS: BP_SYST 133
[2022-01-13] MEDS ORDERED: MORPHINE SULFATE 30 MG TABLET.SA PO ONE (16:15)
[2022-01-13] MEDS ORDERED: MORPHINE SULFATE 15 MG TABLET.ER PO ONE ×2 (16:15→17:00)
[2022-01-13 17:31] VITALS: BP_SYST 141
[2022-01-13 17:56] VITALS: BP_SYST 141
[2022-01-13] MEDS ORDERED: MORPHINE SULFATE 30 MG TABLET.SA PO SCH (21:00)
[2022-01-13] MEDS ORDERED: MORPHINE SULFATE 15 MG TABLET.ER PO SCH (21:00)
== END 2022-01-13 18:16 | disposition home or self-care (01) | DRG 565 ==
LOC: SED 04:58 → SMU 08:02
PROVIDERS: ADMIT Specialist; ATTEND Specialist
DX: M25.461 Effusion, right knee (principal); E44.1 Mild protein-calorie malnutrition; E11.40 Type 2 diabetes mellitus with diabetic neuropathy, unspecified; M79.7 Fibromyalgia; Z20.822 Contact with and (suspected) exposure to COVID-19; Z88.5 Allergy status to narcotic agent; Z88.0 Allergy status to penicillin; Z88.8 Allergy status to other drugs, medicaments and biological substances; Z79.899 Other long term (current) drug therapy
CPT/HCPCS: 36415; 72100-TC; 72170-TC; 73564; 73700-TC; 73721; 76376; 80053; 82962; 85025; 86870; 86886; 86900; 86901; 87045-TC; 87046; 87230-TC; 93005; 96372; 99285; J1815; J1885; J2270; J2405; J3301

== ENCOUNTER 2022-10-05 13:14 | Emergency (ER) | payer OTHER, MEDICAID ==
[~2022-10-05] VITALS: Ht 154.9 cm; Wt 77.1 kg
[~2022-10-05 13:14] MED LIST changes: +CHOL400T58; +FOSI20TA98 PO; +HYDR-4039 PO; -HYDR25TA4 PO; +INSU500I SQ; -LISI10TA29 PO; +NEU300 PO; +OMEP20TA20 PO; -PRO10 PO; +PRO20 PO; +SYN50 PO
[2022-10-05 13:15] VITALS: BP_SYST 189
--- NOTE | 2022-10-05 13:20 | NUR ---
Patient triaged and placed in waiting room. VSS and patient appears in no acute distress at this time. Accompanied by CAREGIVER, awaiting available bed, and MD notified of need for MSE.
--- NOTE | 2022-10-05 14:35 | NUR ---
BROUGHT BACK TO BED #7 AND REPORT GIVEN TO YESENIA
[2022-10-05] MEDS ORDERED: KETOROLAC TROMETHAMINE 30 MG VIAL IVP ONE (14:45)
[2022-10-05] MEDS ORDERED: MORPHINE 4 MG INJ. 4 MG/ML VIAL IVP ONE (14:45)
[2022-10-05] MEDS ORDERED: NACL 0.9% 1,000 ML IV ONE (14:45)
--- NOTE | 2022-10-05 14:57 | NUR ---
DR DIAL AT BEDSIDE FOR EVALUATION
[2022-10-05 15:48] LABS: BASOPHILS % (AUTO) 0.6 % (0.0-2.0); EOSINOPHILS # (AUTO) 0.1 K/uL (0.0-0.4); EOSINOPHILS % (AUTO) 1.5 % (0.0-4.0); HEMOGLOBIN 11.7 g/dL (12.0-16.0); LYMPHOCYTES # (AUTO) 2.2 K/uL (1.0-5.5); LYMPHOCYTES % (AUTO) 27.8 % (20.5-51.5); MEAN CORPUSCULAR HEMOGLOBIN 27 pg (27-31); MEAN CORPUSCULAR HGB CONC 33 % (32-36); MEAN CORPUSCULAR VOLUME 83 fL (79.0-98.0); MONOCYTES # (AUTO) 0.5 K/uL (0.0-1.0); MONOCYTES % (AUTO) 6.5 % (1.7-9.3); NEUTROPHILS # (AUTO) 5.1 K/uL (1.8-7.7); NEUTROPHILS % (AUTO) 63.6 % (40.0-70.0); PLATELET COUNT (AUTO) 155 K/uL (130-430); RED BLOOD CELL COUNT(AUTO) 4.31 MIL/uL (4.2-6.2); RED CELL DISTRIBUTION WIDTH 14.2 % (9.0-15.0)
[2022-10-05 16:03] LABS: ANION GAP 7 (5-15); CALCIUM 8.9 mg/dL (8.4-11.0); CHLORIDE 100 mmol/L (98-107); CREATININE 0.68 mg/dL (0.55-1.30); GLUCOSE 132 mg/dL (70-99); UREA NITROGEN, BLOOD 12 mg/dL (8-21)
[2022-10-05 16:08] LABS: ALANINE AMINOTRANSFERASE 75 U/L (12-78); ALBUMIN 3.6 g/dL (3.4-4.8); ASPARTATE AMINOTRANSFERASE 58 U/L (10-37); TOTAL BILIRUBIN 0.6 mg/dL (0.0-1.0)
[2022-10-05 16:12] LABS: BILIRUBIN,URINE NEGATIVE (NEGATIVE); BLOOD, URINE NEGATIVE (NEGATIVE); CLARITY/URINE CLEAR (CLEAR); COLOR,URINE YELLOW (YELLOW); GLUCOSE,URINE NEGATIVE (NEGATIVE); KETONES,URINE NEGATIVE (NEGATIVE); LEUKOCYTE ESTERASE ,URINE TRACE (NEGATIVE); NITRITE, URINE NEGATIVE (NEGATIVE); PROTEIN URINE TRACE (NEGATIVE); UROBILINOGEN,URINE 0.2 (0.2-1.0)
[2022-10-05 16:24] LABS: BACTERIA,URINE MODERATE /HPF (None Seen)
[2022-10-05 16:26] LABS: MUCUS,URINE None Seen /LPF (None Seen)
[2022-10-05] MEDS ORDERED: cefTRIAXone 1 GM IVPB PREMIX 50 ML IV ONE (16:30)
[2022-10-05] MEDS ORDERED: NITR-85 PO (18:17)
[2022-10-05] MEDS ORDERED: NAPR-1172 PO (18:17)
--- NOTE | 2022-10-05 18:23 | NUR ---
Patient given written and verbal discharge instructions and verbalizes understanding. ER MD discussed with patient the results and treatment provided. Patient in stable condition. ID arm band removed. Rx of Naprosyn,Macrobid given. Patient educated on pain management and to follow up with PMD. Pain Scale 2/10. Opportunity for questions provided and answered. Medication side effect fact sheet provided.
[2022-10-05 18:24] VITALS: BP_SYST 138
== END 2022-10-05 18:24 | disposition home or self-care (01) ==
LOC: SED 13:14
DX: N39.0 Urinary tract infection, site not specified (principal); R07.9 Chest pain, unspecified; E11.9 Type 2 diabetes mellitus without complications; I10 Essential (primary) hypertension; Z88.0 Allergy status to penicillin; Z88.5 Allergy status to narcotic agent; Z88.8 Allergy status to other drugs, medicaments and biological substances; Z79.899 Other long term (current) drug therapy
CPT/HCPCS: 99285; 74176; 96365; 96375; 96361; 80053; 81000; 82962; 85025; 87040; 87086; 36415; 76376; J0696; J1885; J2270; J7030